=== PATIENT | male | born 1985 ===

== ENCOUNTER 2016-10-25 10:07 | Day surgery (SDC) | payer OTHER ==
[2016-10-24 09:09] VITALS: BMI 24.0
[~2016-10-25 10:07] MED LIST: SODIUM CHLORIDE 0.9% 1,000 ML IV SCH
[2016-10-25 10:38] VITALS: BP 127/86; PULSE 66; RESP 16
[2016-10-25 10:39] VITALS: TEMP 98.6
[2016-10-25] MEDS ORDERED: SODIUM CHLORIDE 0.9% 500 ML IV ONE (10:39)
--- NOTE | 2016-10-25 14:55 | P.PCN ---
Preoperative Diagnosis: Twelve-lead ECG shows sinus mechanism normal ND narrow QRS normal ST segments normal QT interval no epsilon waves no delta waves
--- NOTE | 2016-10-25 15:58 | CE ---
DATE OF SERVICE: 10/25/2016 TILT TABLE TEST This is a 31-year-old male patient referred by Dr. Engel ) for a tilt table test. Baseline blood pressure 119/70 mmHg. Baseline heart rate 60 beats per minute. Patient was tilted upright at an angle of 70 degrees per protocol. Throughout the test his heart rate and blood pressure remained stable. He did complain of feeling dizzy, but there was no change in heart rate or blood pressure. He was laid supine at the end of the procedure. IMPRESSION: 1. No evidence for neurocardiogenic syncope. 2. Mild increase in the heart rate to about 100 beats per minute, approximately 20- to 30-beat rise in heart rate with upright position. No change in blood pressure.
== END 2016-10-25 11:59 | disposition home or self-care (01) ==
LOC: CATHEP 10:07
PROVIDERS: ATTEND Internal Medicine Clinical Cardiac Electrophysiology
DX: R55 Syncope and collapse (principal); R07.2 Precordial pain; I49.3 Ventricular premature depolarization; Z82.49 Family history of ischemic heart disease and other diseases of the circulatory system; Z79.1 Long term (current) use of non-steroidal anti-inflammatories (NSAID); Z79.899 Other long term (current) drug therapy; F17.210 Nicotine dependence, cigarettes, uncomplicated
CPT/HCPCS: 93005; 93660